=== PATIENT | female | born 1975 | race Caucasian/White ===

== ENCOUNTER 2018-11-18 23:30 | Emergency (ER) | payer OTHER ==
[~2018-11-18] VITALS: Ht 162.6 cm; Wt 70.0 kg
[~2018-11-18 23:30] MED LIST: THYR30TA PO; VILA20TA PO
[2018-11-18 23:33] VITALS: BP 121/72
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
--- NOTE | 2018-11-18 23:56 | NUR ---
PT REFUSING LABS ATT
[2018-11-19 00:16] LABS: AMPHETAMINE SCREEN, URINE Negative (Negative); BARBITURATE SCREEN, URINE Negative (Negative); BENZODIAZEPINE SCREEN, URINE Negative (Negative); CANNABINOID SCREEN, URINE Negative (Negative); COCAINE SCREEN, URINE Negative (Negative); METHADONE SCREEN, URINE Negative (Negative); OPIATE SCREEN, URINE Negative (Negative)
--- NOTE | 2018-11-19 00:50 | NUR ---
TELEPSYCH INITIATED, [address] BOT PLACED AT BS.
--- NOTE | 2018-11-19 00:51 | NUR ---
Umair swan in [facility] - 11/19/18 at 0055 by ALYSSA BREATHALYZER 0.50
--- NOTE | 2018-11-19 00:55 | NUR ---
BREATHALYZER 0.050
--- NOTE | 2018-11-19 01:06 | NUR ---
REPORT GIVEN TO [facility]
== END 2018-11-19 02:23 | disposition home or self-care (01) ==
LOC: ED 11-19 00:01
DX: R45.851 Suicidal ideations (principal); Z00.00 Encounter for general adult medical examination without abnormal findings; Z90.49 Acquired absence of other specified parts of digestive tract; Z90.710 Acquired absence of both cervix and uterus
CPT/HCPCS: 80053; 80307; 80329; 85025; 99283; G0480